=== PATIENT | female | born 1965 | race Caucasian/White ===

== ENCOUNTER 2022-07-20 19:48 | Emergency (ER) | payer MEDICAID, SELFPAY ==
[2022-07-20 19:48] VITALS: BP 122/101; PULSE 94; RESP 16; TEMP 36.8; O2SAT 97; BMI 31.8
--- NOTE | 2022-07-20 20:36 | EDS_ITS ---
HPI History of Present Illness Chief Complaint: Dental Detail of Chief Complaint: Pain left upper tooth Informant: patient Onset/Context/Timing Onset: Hours Context: Sudden Onset Timing: Continuous Quality: Pain Location: Left upper molar, tooth number 18 Current Severity: Mild Maximum Severity: Severe Worsened by: Cold and hot water Associated Symptoms Assocated Symptom - Dental: cold sensitivity and hot sensitivity; Negative for f ever, jaw swelling, face swelling or other Narrative Narrative: Patient is a 56-year-old woman who presents with abrupt onset of dental pain. Pain is made worse with cold and hot liquids. Significantly worse with hot. She states she is had problems with her teeth after diagnosed with parathyroid disease. She denies fever, chills night sweats. She denies difficulty opening closing her mouth completely. She denies change in voice. Denies facial swelling. She denies history of medic fever, heart murmur, SBE or being immune suppressed. Prior similar symptoms: Yes Recent Illness/Hospitalization: No PFSH PFSH Home Medications hydrocodone-acetaminophen 5-325mg 5mg-325mg 1 tab PO Q6H PRN PRN Pain 3 days #10 TABLETS 07/20/22 [Rx Last Taken Unknown] Allergy/AdvReac Type Severity Reaction Status Date / Time No Known Allergies Allergy Verified 07/20/22 19:49 Social History (Updated 07/20/22 @ 20:[address] Kendell Rodríguez MD) household members: none Smoking Status: Current every day smoker tobacco type: cigarettes substance use type: does not use ROS ROS ED Constitutional Constitutional ED: Denies chills, fever(s), subjective, sweats or weight loss Eyes Eyes: Denies blurry vision or change in vision ENT ENT ED: Reports other Details: She denies drooling. Denies difficulty opening closing her mouth. ; Denies ear pain, rhinorrhea or sore throat Cardiovascular Cardiovascular: Denies chest pain or palpitations Respiratory/Chest Respiratory/Chest: Denies cough, dyspnea or dyspnea on exertion Neurologic Neurologic: Reports headache(s); Denies paresthesias or weakness Allergic/Immunologic Allergic/Immunologic ED: Denies mouth swelling or tongue swelling EXAM Physical Exam Const Vital Signs: 07/20/22 19:48 Temperature 98.2 F Temperature Source Temporal Pulse Rate 94 Respiratory Rate 16 Blood Pressure 122/101 H Blood Pressure Mean 108 Pulse Ox 97 Oxygen Delivery Method Room Air Positive well nourished, well developed and obese Constitutional Narrative: Patient appears uncomfortable. General Appearance ED: well developed; Negative for NAD Nutritional Appearance: obese HEENT HEENT Narrative: There is no trismus. There is no dysphonia. There is no evidence of facial cellulitis or swelling. Mouth ED: Yes oral and palatal mucosa normal, Yes lips normal, Yes tongue normal, Yes salivary gland normal, No mouth trauma and No salivary gland abnormal Mouth: oral and palatal mucosa normal, lips normal, tongue normal, salivary gland normal, No mouth trauma and No salivary gland abnormal Teeth and Gingiva: abnormal tooth and associated gingiva, caries, gingiva abnormal, poor dentition and teeth discoloration Throat: posterior oropharynx normal Eyes PERRL and EOMs intact bilaterally General Eye ED: Negative for pale conjunctiva or scleral icterus Neck no lymphadenopathy, supple and no JVD Neck Narrative: Trachea is midline. There is no in-store stridor. Resp normal respiratory effort and no retractions Cardio regular rate, regular rhythm, S1 normal heart sound, S2 normal heart sound and no murmurs Neuro oriented x3, CN's II-XII intact bilaterally and moves all extremities Sensorium / Orientation: alert Psych mental status grossly normal Skin no rashes or lesions noted and no wounds MDM MDM MDM Narrative Medical decision making narrative: There is a small caries noted. There is no evidence of periodontal abscess. 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 Dental block was placed using anesthetic and dental blocks. She was discharged patient for pain medicine and instructed to contact her dentist since the pain will not be alleviated unless she has the tooth extracted or root canal. Discharge Plan Triage Chief Complaint: Dental ED Provider: Kendell Rodríguez Dx/Rx/DC Orders Clinical Impression: Symptomatic irreversible pulpitis Prescriptions: New hydrocodone-acetaminophen [hydrocodone-acetaminophen] 5-325 mg tablet 1 tab PO Q6H PRN PRN (Reason: Pain) 3 Days Qty: 10 0RF Primary Care Provider: Care Physician,No Primary Referrals: Care Physician,No Primary [Primary Care Provider] - Dentist,Your [STAFF PHYSICIAN] - As soon as possible Activity Restrictions/Additional Instructions: You will need to see your dentist to have either the tooth extracted or root canal to alleviate the pain. The condition you have is painful and no pain medicine will alleviate the pain. Disposition Disposition: Home, Self Care
== END 2022-07-20 20:43 | disposition home or self-care (01) ==
PROVIDERS: Emergency Provider Emergency Medicine; Visit Provider Emergency Medicine
DX: K04.02 Irreversible pulpitis (principal); K02.9 Dental caries, unspecified; F17.210 Nicotine dependence, cigarettes, uncomplicated; E66.9 Obesity, unspecified; R51.9 Headache, unspecified
CPT/HCPCS: 99282

== ENCOUNTER 2022-12-21 12:59 | Emergency (ER) | payer MEDICAID, SELFPAY ==
[2022-12-21 13:00] VITALS: BP 169/100; PULSE 93; RESP 18; TEMP 36; O2SAT 96; BMI 38.9
--- NOTE | 2022-12-21 13:18 | EDS_ITS ---
HPI History of Present Illness Chief Complaint: Dizziness Detail of Chief Complaint: Spinning Informant: patient Onset/Context/Timing Onset: Days (Onset 12 days ago) Context: Sudden Onset Timing: Intermittent Quality: If you are on a ride at an amusement park that you get spun on. Current Severity: Gone Maximum Severity: Severe Worsened by: Nothing per patient Relieved by: Nothing per patient Associated Symptoms Associated Symptoms: Nausea Narrative Narrative: Patient is a 57-year-old woman with no similar past medical history who presents with vertiginous symptoms. She denies headache. She states when she has vertigo her eyes move all around. She denies ringing or ears or decreased hearing. She denies change in vision. She denies trouble with speech or s wallowing. She denies paresthesia, anesthesia or motor weakness. She denies cardiac or respiratory symptoms. She does report nausea without vomiting. She states when she gets dizzy she has trouble with her balance and walking. There is no history of head trauma. She has seen a conference translator and was told she had benign paroxysmal positional vertigo 7 years ago. She denies black or maroon-colored stool. She denies orthostatic symptoms. She is not on an anticoagulant. Prior similar symptoms: Yes (7 years ago) Recent Illness/Hospitalization: No PFSH PFSH Medical History no medical history Home Medications hydrocodone-acetaminophen 5-325mg 5mg-325mg 1 tab PO Q6H PRN PRN Pain 3 days #10 TABLETS 07/20/22 [Rx Last Taken Unknown] Allergy/AdvReac Type Severity Reaction Status Date / Time No Known Allergies Allergy Verified 12/21/22 13:02 Social History household members: none Smoking Status: Current every day smoker tobacco type: cigarettes substance use type: does not use ROS ROS ED Constitutional Constitutional ED: Denies chills, fever(s), subjective, sweats or weight loss Eyes Eyes: Denies blurry vision, change in vision or diplopia ENT ENT ED: Denies ear pain, rhinorrhea or sore throat Cardiovascular Cardiovascular: Denies chest pain, orthopnea, palpitations, paroxysmal nocturnal dyspnea or racing heartbeat Respiratory/Chest Respiratory/Chest: Denies cough, dyspnea, dyspnea on exertion, orthopnea or paroxysmal nocturnal dyspnea Gastrointestinal Gastrointestinal: Denies abdominal pain, melena, nausea or vomiting Genitourinary Genitourinary ED: Denies dysuria, hematuria or urinary frequency Musculoskeletal Musculoskeletal: Denies back pain or neck pain Integumentary Denies rash Neurologic Neurologic: Denies headache(s), paresthesias or weakness Psychiatric Psychiatric: Reports anxiety Endocrine Endocrinology: Denies cold intolerance or heat intolerance Hematologic/Lymphatic Hematologic/Lymphatic: Reports systems reviewed and no addt'l complaints, except as documented EXAM Physical Exam Const Vital Signs: 12/21/22 13:00 12/21/22 13:07 Temperature 96.8 F L Temperature Source Temporal Pulse Rate 93 Respiratory Rate 18 Respiratory Pattern Normal Blood Pressure 169/100 H Blood Pressure Mean 123 Pulse Ox 96 Positive well nourished, well developed and obese General Appearance ED: well developed and NAD; Negative for cyanotic, diaphoretic or pallor Nutritional Appearance: obese HEENT Reports moist mucous membranes HEENT Narrative: Head is normocephalic and atraumatic. Ears are normal. TMs are normal. Nares patent with no discharge. Posterior pharynx is normal with a midline uvula. Eyes PERRL and EOMs intact bilaterally General Eye ED: Negative for pale conjunctiva or scleral icterus Neck no lymphadenopathy, supple and no JVD Chest Wall inspection of chest normal and palpation of chest normal Resp normal respiratory effort and clear to auscultation bilaterally Cardio regular rate, regular rhythm, S1 normal heart sound, S2 normal heart sound and no murmurs GI normal to inspection, nondistended, normoactive bowel sounds, non-tender, non- distended and no masses; Negative for hepatosplenomegaly Auscultation: normoactive bowel sounds Palpation: soft Back/Spine no CVA tenderness Cervical Spine: Negative for cervical spine tenderness Thoracic Spine / Upper Back: Negative for thoracic spinal tenderness Lumbar Spine / Lower Back: Negative for lumbar spinal tenderness Extremity normal to inspection General Extremety ED: Negative for edema General Extremity: Negative for edema Neuro oriented x3, CN's II-XII intact bilaterally and no sensory deficits noted Neuro Narrative: There is noted to metria. Romberg with eyes open and close normal. The eye askew test was negative. The hint test was negative. Hitterdal-Hallpike maneuver was positive worse right side than left side. Gait was observed and normal. Tandem gait is normal. Sensorium / Orientation: alert Motor Exam: strength 5/5 throughout Psych mental status grossly normal Skin no rashes or lesions noted, no wounds and skin turgor normal General Skin Exam: Negative for jaundice or pallor MDM MDM MDM Narrative Medical decision making narrative: With a normal nonfocal neurologic exam intermittent symptoms and a positive Eleuterio- Hallpike maneuver patient has paroxysmal and positional vertigo. We will treat her nausea with Zofran and perform Domonique test. We will review prior records as well. Treatment and Re-Evaluation :: Patient was treated with Zofran ODT for nausea. Domonique maneuver was performed. Total time Domonique maneuver 10 minutes. Patient had symptoms when her head was to the left. No symptoms on the right and minimal if any symptoms when she was upright. Will reassess in 5 to 10 minutes. Patient was reassessed at 1502. Her symptoms have resolved. She feels to baseline. Will discharge to home Discharge Plan Triage Chief Complaint: Dizziness ED Provider: Kendell Rodríguez Dx/Rx/DC Orders Clinical Impression: Benign paroxysmal positional vertigo due to bilateral vestibular disorder, Parathyroid disease, Elevated BP without diagnosis of hypertension Instructions: ED BPV Vertigo Prescriptions: No Action hydrocodone-acetaminophen [hydrocodone-acetaminophen] 5-325 mg tablet 1 tab PO Q6H PRN PRN (Reason: Pain) 3 Days Qty: 10 0RF Primary Care Provider: Care Physician,No Primary Referrals: Care Physician,No Primary [Primary Care Provider] - Disposition Disposition: Home, Self Care
[2022-12-21] MEDS: Ondansetron ODT 4 MG Tablet PO (13:55)
[2022-12-21 15:06] VITALS: BP 135/93; PULSE 77; RESP 16; O2SAT 97
== END 2022-12-21 15:09 | disposition home or self-care (01) ==
PROVIDERS: Emergency Provider Emergency Medicine; Visit Provider Emergency Medicine
DX: H81.13 Benign paroxysmal vertigo, bilateral (principal); E21.5 Disorder of parathyroid gland, unspecified; R03.0 Elevated blood-pressure reading, without diagnosis of hypertension; R11.0 Nausea; F17.210 Nicotine dependence, cigarettes, uncomplicated
CPT/HCPCS: 99282